=== PATIENT | female | born 2005 | race African-American/Black ===

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

== ENCOUNTER 2024-02-06 07:29 | Emergency (ER) | payer OTHER ==
[2024-02-06 07:43] VITALS: BP 131/92; PULSE 72; RESP 18; TEMP 97.9; BMI 25.6
[2024-02-06] MEDS ORDERED: ONDANSETRON *ODT* 4 MG TABLET ONE (08:30)
[2024-02-06] MEDS: ONDANSETRON *ODT* 4 MG TABLET SL ONE (08:31)
[2024-02-06] MEDS ORDERED: IBUPROFEN 400 MG TABLET (FP) PO ONE (08:36)
[2024-02-06] MEDS: IBUPROFEN 400 MG TABLET (FP) PO ONE (08:55)
== END 2024-02-06 10:02 | disposition home or self-care (01) ==
LOC: JER 07:29
DX: R11.2 Nausea with vomiting, unspecified (principal); R10.31 Right lower quadrant pain; R10.32 Left lower quadrant pain
CPT/HCPCS: 84703; 99283-25; Q0162